=== PATIENT | male | born 1940 | race Caucasian/White ===

== ENCOUNTER 2018-11-13 10:27 | Observation (INO) ==
[2018-11-13] MEDS ORDERED: methylPREDNISolone 125 MG/2 ML VIAL IVP ONE (10:44)
[2018-11-13] MEDS ORDERED: Ipratropium/Albuterol Neb 3 ML IH ONE (10:44)
[2018-11-13] MEDS ORDERED: Isovue-370 500 ML BOTTLE IVP ONE (10:44)
[2018-11-13 11:06] LABS: Basophils % 0.7 %; Eosinophils # 0.1 K/mcL (0.0-0.6); Hematocrit 51.2 % (37.5-50.1); Hemoglobin 17.2 g/dL (12.9-16.9); Immature Granulocytes % 0.5 % (0-4); Lymphocytes # 1.3 K/mcL (0.6-4.6); Lymphocytes % 29.8 %; Mean Corpuscular HGB Conc 33.6 g/dL (31.6-35.5); Mean Corpuscular Volume 92.4 fL (83.0-100.0); Mean Platelet Volume 10.7 fL (9.4-12.4); Monocytes # 0.5 K/mcL (0.0-1.3); Monocytes % 11.6 %; Neutrophils # 2.4 K/mcL (1.6-8.9); Platelet Count 138 K/mcL (140-400); Red Blood Count 5.54 M/mcL (4.19-5.50); Red Cell Distribution Width 13.6 % (11.5-14.5); Segmented Neutrophils % 55.4 %; White Blood Count 4.4 K/mcL (4.3-11.1)
[2018-11-13 11:14] LABS: INR 1.1; Prothrombin Time 12.9 Seconds (9.4-12.1)
[2018-11-13 11:16] LABS: Activated Partial Thrombo Time 30.2 Seconds (26.0-36.0)
[2018-11-13 11:23] LABS: Alanine Aminotransferase 18 Units/L (7-52); Albumin 4.2 g/dL (3.5-5.7); Albumin/Globulin Ratio 1.1 (1.1-2.2); Alkaline Phosphatase 102 Units/L (34-104); Aspartate Amino Transferase 24 Units/L (13-39); BUN/Creatinine Ratio 19 (6-26); Bilirubin,Direct 0.1 mg/dL (0.0-0.2); Bilirubin,Indirect 0.6 mg/dL (0.0-1.2); Bilirubin,Total 0.7 mg/dL (0.3-1.0); Blood Urea Nitrogen 24 mg/dL (8-23); Calcium 9.2 mg/dL (8.6-10.3); Carbon Dioxide 30 mEq/L (23-29); Chloride 99 mEq/L (98-107); Globulin 3.9 g/dL (2.4-3.5); Glucose 116 mg/dL (70-105); Lipase 15 Units/L (11-82); Osmolality,Calculated 281 (280-300); Potassium 3.2 mEq/L (3.5-5.1); Sodium 133 mEq/L (136-145); Total Protein 8.1 g/dL (6.4-8.9); Troponin I < 0.03 ng/mL (< 0.04); eGFR For African Americans > 60 (> 60); eGFR For Non-African Americans 55 (> 60)
[2018-11-13] MEDS ORDERED: Naloxone 0.4 MG/ML INJ IVP PRN (14:06)
[2018-11-13] MEDS ORDERED: Ondansetron 4 MG/2 ML VIAL IVP PRN (14:06)
[2018-11-13] MEDS ORDERED: Nitroglycerin 0.4 MG TAB.SUBL SL PRN (14:11)
[2018-11-13] MEDS ORDERED: Ringers Solution, Lactated 1,000 ML IVC SCH (14:15)
[2018-11-13] MEDS ORDERED: Azithromycin 500 MG in 0.9 % Sodium Chloride 250 ML IVPB SCH (15:00)
[2018-11-13] MEDS: Ipratropium/Albuterol Neb 3 ML IH SCH ×3 (15:25→23:11)
[2018-11-13] MEDS ORDERED: MethylPREDNISolone 40 MG/ML VIAL IVP SCH (18:00)
[2018-11-13 18:22] LABS: Adenovirus Not Detected (Not Detect); Bordetella Pertussis Not Detected (Not Detect); Chlamydophila pneumoniae Not Detected (Not Detect); Coronavirus 229E Not Detected (Not Detect); Coronavirus HKU1 Not Detected (Not Detect); Coronavirus NL63 Not Detected (Not Detect); Coronavirus OC43 Not Detected (Not Detect); Human Metapneumovirus Not Detected (Not Detect); Human Rhinovirus/Enterovirus Not Detected (Not Detect); Influenza A Subtype 2009 H1 Not Detected (Not Detect); Influenza A Untypeable Not Detected (Not Detect); Influenza B Not Detected (Not Detect); Mycoplasma pneumoniae Not Detected (Not Detect); Parainfluenza Virus 1 Not Detected (Not Detect); Parainfluenza Virus 2 Not Detected (Not Detect); Parainfluenza Virus 3 Not Detected (Not Detect); Parainfluenza Virus 4 Not Detected (Not Detect); Respiratory Syncytial Virus Not Detected (Not Detect)
[2018-11-13] MEDS: *HR* Heparin 5,000 UNIT/ML VIAL SQ SCH (21:30)
[2018-11-13] MEDS ORDERED: FELODIPINE 5 MG PO SCH (22:02)
[2018-11-14] MEDS ORDERED: Acetaminophen IV 500 MG/50 ML INFUS..BTL IVPB ONE (02:12)
[2018-11-14] MEDS: *HR* Heparin 5,000 UNIT/ML VIAL SQ SCH (04:07)
[2018-11-14] MEDS: Ipratropium/Albuterol Neb 3 ML IH SCH ×3 (04:09→11:15)
[2018-11-14 05:57] LABS: Basophils % 0.2 %; Hematocrit 46.3 % (37.5-50.1); Hemoglobin 15.9 g/dL (12.9-16.9); Immature Granulocytes % 0.2 % (0-4); Lymphocytes # 1.2 K/mcL (0.6-4.6); Lymphocytes % 23.3 %; Mean Corpuscular HGB Conc 34.3 g/dL (31.6-35.5); Mean Corpuscular Hemoglobin 30.8 pg (28.0-33.3); Mean Corpuscular Volume 89.7 fL (83.0-100.0); Mean Platelet Volume 11.1 fL (9.4-12.4); Monocytes # 0.6 K/mcL (0.0-1.3); Monocytes % 10.3 %; Neutrophils # 3.5 K/mcL (1.6-8.9); Platelet Count 146 K/mcL (140-400); Red Blood Count 5.16 M/mcL (4.19-5.50); Red Cell Distribution Width 13.6 % (11.5-14.5); White Blood Count 5.3 K/mcL (4.3-11.1)
[2018-11-14 06:05] LABS: BUN/Creatinine Ratio 25 (6-26); Blood Urea Nitrogen 27 mg/dL (8-23); Calcium 9.1 mg/dL (8.6-10.3); Carbon Dioxide 24 mEq/L (23-29); Chloride 101 mEq/L (98-107); Chol/HDL Ratio 5.1 (0-4.9); Cholesterol 148 mg/dL (< 200); Glucose 127 mg/dL (70-105); HDL Cholesterol 29 mg/dL (40-59); LDL Cholesterol,Calculated 106 mg/dL (0-99); Magnesium 1.9 mg/dL (1.6-2.6); Osmolality,Calculated 287 (280-300); Phosphorous 2.2 mg/dL (2.7-4.5); Sodium 135 mEq/L (136-145); Triglycerides 67 mg/dL (< 150); eGFR For African Americans > 60 (> 60); eGFR For Non-African Americans > 60 (> 60)
[2018-11-14 07:01] VITALS: BP 167/93
[2018-11-14] MEDS ORDERED: predniSONE 20 MG TABLET PO SCH (09:00)
[2018-11-14] MEDS: Aspirin 81 MG TAB.CHEW PO SCH ×2 (09:02→09:12)
[2018-11-14] MEDS: Potassium Phosphate 44 MEQ in 0.9 % Sodium Chloride 250 ML IVPB ONE ×2 (09:03→09:12)
[2018-11-14 11:14] LABS: BUN/Creatinine Ratio 22 (6-26); Blood Urea Nitrogen 26 mg/dL (8-23); Calcium 9.1 mg/dL (8.6-10.3); Carbon Dioxide 28 mEq/L (23-29); Chloride 101 mEq/L (98-107); Glucose 114 mg/dL (70-105); Osmolality,Calculated 286 (280-300); Sodium 135 mEq/L (136-145); eGFR For African Americans > 60 (> 60); eGFR For Non-African Americans > 60 (> 60)
== END 2018-11-14 12:09 | disposition home or self-care (01) ==
LOC: 3BNU 10:27 → EMEROOARM 10:27 → SUATTDRO 13:45 → 3BNU 14:10
PROVIDERS: ADMIT Internal Medicine; ATTEND Internal Medicine

== ENCOUNTER 2018-11-27 10:08 | Inpatient (IN) ==
[2018-11-27] MEDS ORDERED: CeFAZolin Syr 2,000MG/20 ML 2,000 MG/20 ML SYRINGE IVPB ONE (10:30)
[2018-11-27] MEDS ORDERED: Ringers Solution, Lactated 1,000 ML IVC SCH (10:30)
[2018-11-27] MEDS ORDERED: Albuterol 2.5 MG/3 ML NEBULIZER IH PRN (10:30)
[2018-11-27] MEDS ORDERED: Acetaminophen IV 1,000 MG/100 ML INFUS..BTL IVPB ONE (11:49)
[2018-11-27] MEDS ORDERED: Ondansetron 4 MG/2 ML VIAL IVP ONE (11:52)
[2018-11-27] MEDS ORDERED: *HR* OxyCODONE Immed Rel 5 MG TABLET PO PRN (11:52)
[2018-11-27] MEDS ORDERED: *HR* Meperidine 25 MG/ML SYRINGE IVP PRN (11:52)
[2018-11-27] MEDS ORDERED: *HR* HYDROmorphone (PF) 1 MG/ML SYRINGE IVP PRN (11:52)
[2018-11-27] MEDS ORDERED: Lidocaine -MPF 4% 5 ML AMPUL ONE (12:18)
[2018-11-27] MEDS ORDERED: Lidocaine -MPF 2% 2 ML VIAL ONE (12:18)
[2018-11-27] MEDS ORDERED: *HR* Propofol 200 MG/20 ML VIAL IVP ONE (12:18)
[2018-11-27] MEDS ORDERED: Ondansetron 4 MG/2 ML VIAL ONE (12:18)
[2018-11-27] MEDS ORDERED: *HR* FentaNYL (PF) 100 MCG/2 ML VIAL ONE (12:18)
[2018-11-27] MEDS ORDERED: *HR* Midazolam HCl 2 MG/2 ML VIAL ONE (12:18)
[2018-11-27] MEDS ORDERED: *HR* Rocuronium Bromide 50 MG/5 ML VIAL ONE ×2 (12:18→14:39)
[2018-11-27] MEDS ORDERED: Dexamethasone 4 MG/ML VIAL ONE (12:18)
[2018-11-27] MEDS ORDERED: Bupivacaine/EPI 1:200k 0.5%PF 30 ML VIAL ONE (12:26)
[2018-11-27] MEDS ORDERED: EPHEDrine 50 MG/ML VIAL ONE (13:09)
[2018-11-27] MEDS ORDERED: *HR* HYDROMORPHONE 2 MG/ML VIAL ONE (15:29)
[2018-11-27] MEDS ORDERED: Acetaminophen 325 MG TABLET PO PRN (17:05)
[2018-11-27] MEDS ORDERED: Naloxone 0.4 MG/ML INJ IVP PRN (17:05)
[2018-11-27] MEDS: *HR* HYDROcodone/Acet 5/325 mg TABLET PO PRN (20:22)
[2018-11-27] MEDS: *HR* Heparin 5,000 UNIT/ML VIAL SQ SCH (20:25)
[2018-11-27] MEDS: 0.9 % Sodium Chloride 1,000 ML IVC SCH (20:36)
[2018-11-28] MEDS: Ondansetron 4 MG/2 ML VIAL IVP PRN (00:54)
[2018-11-28] MEDS: *HR* HYDROcodone/Acet 5/325 mg TABLET PO PRN ×2 (00:55→06:00)
[2018-11-28] MEDS: 0.9 % Sodium Chloride 1,000 ML IVC SCH ×3 (04:10→21:36)
[2018-11-28 04:56] LABS: Basophils % 0.1 %; Hematocrit 41.3 % (37.5-50.1); Immature Granulocytes % 0.4 % (0-4); Lymphocytes # 0.6 K/mcL (0.6-4.6); Lymphocytes % 4.4 %; Mean Corpuscular HGB Conc 33.2 g/dL (31.6-35.5); Mean Corpuscular Volume 93.4 fL (83.0-100.0); Mean Platelet Volume 10.3 fL (9.4-12.4); Monocytes # 0.6 K/mcL (0.0-1.3); Monocytes % 4.5 %; Neutrophils # 12.6 K/mcL (1.6-8.9); Platelet Count 197 K/mcL (140-400); Red Blood Count 4.42 M/mcL (4.19-5.50); Red Cell Distribution Width 13.3 % (11.5-14.5); Segmented Neutrophils % 90.6 %; White Blood Count 13.9 K/mcL (4.3-11.1)
[2018-11-28 04:59] LABS: Hemoglobin 13.7 g/dL (12.9-16.9)
[2018-11-28 05:17] LABS: Calcium 8.4 mg/dL (8.6-10.3); Potassium 4.4 mEq/L (3.5-5.1)
[2018-11-28] MEDS: *HR* Heparin 5,000 UNIT/ML VIAL SQ SCH ×2 (05:19→18:14)
[2018-11-28] MEDS: (Felodipine [Felodipine Er] 5 MG) PO SCH ×3 (14:58→21:39)
[2018-11-28] MEDS: *HR* OxyCODONE Immed Rel 5 MG TABLET PO PRN (15:43)
[2018-11-28] MEDS: Acetaminophen IV 1,000 MG/100 ML INFUS..BTL IVPB SCH ×2 (15:44→23:20)
[2018-11-28] MEDS ORDERED: Temazepam 15 MG CAPSULE PO PRN (17:24)
[2018-11-29] MEDS: Ondansetron 4 MG/2 ML VIAL IVP PRN (02:31)
[2018-11-29] MEDS: *HR* Heparin 5,000 UNIT/ML VIAL SQ SCH ×2 (06:26→18:09)
[2018-11-29] MEDS: Aspirin Enteric Coated 81 MG Tablet PO SCH (09:33)
[2018-11-29] MEDS: Acetaminophen IV 1,000 MG/100 ML INFUS..BTL IVPB SCH ×2 (09:34→16:43)
[2018-11-29] MEDS: (Felodipine [Felodipine Er] 5 MG) PO SCH ×2 (09:35→20:45)
[2018-11-29] MEDS: *HR* OxyCODONE Immed Rel 5 MG TABLET PO PRN ×2 (14:47→20:44)
[2018-11-30] MEDS: Acetaminophen IV 1,000 MG/100 ML INFUS..BTL IVPB SCH ×2 (00:03→07:30)
[2018-11-30] MEDS: 0.9 % Sodium Chloride 1,000 ML IVC SCH (00:48)
[2018-11-30] MEDS: *HR* OxyCODONE Immed Rel 5 MG TABLET PO PRN ×2 (04:57→10:21)
[2018-11-30] MEDS: *HR* Heparin 5,000 UNIT/ML VIAL SQ SCH (04:58)
[2018-11-30] MEDS: Aspirin Enteric Coated 81 MG Tablet PO SCH (10:21)
[2018-11-30] MEDS: (Felodipine [Felodipine Er] 5 MG) PO SCH (10:22)
[2018-11-30 11:05] VITALS: BP 188/83
== END 2018-11-30 11:45 | disposition home or self-care (01) | DRG 658 ==
LOC: SAMDAY 10:08 → 3ANU 16:47
PROVIDERS: ADMIT Urology; ATTEND Urology